=== PATIENT | male | born 1950 | race Two or more races ===

== ENCOUNTER 2022-08-03 12:56 | Emergency (ER) | payer OTHER ==
[~2022-08-03] VITALS: Ht 175.3 cm; Wt 76.2 kg
[2022-08-03] MEDS ORDERED: GLIMEPIRIDE4 M1 PO (13:09)
[2022-08-03] MEDS ORDERED: FARXIGA10 MG PO (13:09)
[2022-08-03] MEDS ORDERED: JANUVIA100 MG PO (13:10)
[2022-08-03] MEDS ORDERED: PLAVIX75 MG PO (13:10)
[2022-08-03] MEDS ORDERED: CRESTOR20 MG PO (13:11)
[2022-08-03] MEDS ORDERED: HUMULIN 70100 UNIT/2 SQ (13:12)
[2022-08-03] MEDS ORDERED: NORFLEX100MG PO (15:04)
[2022-08-03] MEDS ORDERED: KETO10TA2 PO (15:04)
== END 2022-08-03 15:16 | disposition home or self-care (01) ==
LOC: ER 12:56
DX: M25.552 Pain in left hip (principal); E11.9 Type 2 diabetes mellitus without complications; Z79.4 Long term (current) use of insulin; Z79.84 Long term (current) use of oral hypoglycemic drugs; I99.8 Other disorder of circulatory system; Z91.048 Other nonmedicinal substance allergy status

== ENCOUNTER 2023-03-17 10:21 | Emergency (ER) | payer OTHER ==
[~2023-03-17] VITALS: Ht 175.3 cm; Wt 77.1 kg
[~2023-03-17 10:21] MED LIST: CRESTOR20 MG PO; FARXIGA10 MG PO; GLIMEPIRIDE4 M1 PO; HUMULIN 70100 UNIT/2 SQ; JANUVIA100 MG PO; KETO10TA2 PO; NORFLEX100MG PO; PLAVIX75 MG PO
[2023-03-17] MEDS ORDERED: KETO10TA2 PO (15:19)
[2023-03-17] MEDS ORDERED: NORFLEX100MG PO (15:19)
== END 2023-03-17 15:24 | disposition home or self-care (01) ==
LOC: ER 10:21
DX: M54.50 Low back pain, unspecified (principal); Z91.013 Allergy to seafood; E11.9 Type 2 diabetes mellitus without complications; Z79.84 Long term (current) use of oral hypoglycemic drugs; Z20.822 Contact with and (suspected) exposure to COVID-19

== ENCOUNTER 2024-11-01 08:25 | Emergency (ER) | payer OTHER ==
[~2024-11-01] VITALS: Ht 175.3 cm; Wt 70.3 kg
[2024-11-01] MEDS ORDERED: LANTUS SOL100 UNIT/1 SQ (09:19)
[2024-11-01] MEDS ORDERED: ACETAMINOPHEN 500 MG GEL..CAP PO ONE (09:45)
[2024-11-01 11:02] LABS: PH,URINE 6.5 (5.0-8.0); URINE APPEARANCE Clear; URINE BILIRRUBIN Negative (NEGATIVE); URINE BLOOD Large; URINE COLOR Yellow; URINE KETONE Negative (NEGATIVE); URINE LEUKOCYTE Small; URINE NITRATE Negative; URINE PROTEIN Trace (NEGATIVE); URINE UROBILINOGEN 0.2 E.U./dl
[2024-11-01 11:06] LABS: URINE RBC 2544.5 uL (0.0-20.8); URINE WBC 1004.9 uL (0.0-23.2)
[2024-11-01 11:15] LABS: URINE BACTERIA > 9821.5 uL (0.0-1933); URINE GLUCOSE >=1000 MG/DL (NEGATIVE)
[2024-11-01 11:50] VITALS: BP 155/83; O2SAT 98
== END 2024-11-01 11:50 | disposition home or self-care (01) ==
LOC: ER 08:25
PROVIDERS: General Practice
DX: N39.0 Urinary tract infection, site not specified (principal); I10 Essential (primary) hypertension; E11.9 Type 2 diabetes mellitus without complications; Z79.4 Long term (current) use of insulin; Z91.013 Allergy to seafood; Z91.018 Allergy to other foods